=== PATIENT | female | born 1935 | race Caucasian/White ===

== ENCOUNTER 2016-08-02 11:35 | Emergency (ER) | payer OTHER ==
[2016-08-02 11:41] VITALS: TEMP 98.1; O2SAT 96
--- NOTE | 2016-08-02 12:02 | EDPHY ---
H & P Time Seen by Provider: 08/02/16 11:43 HPI/ROS: CHIEF COMPLAINT: Right leg pain and swelling HISTORY OF PRESENT ILLNESS: The patient is a 80 year old female presenting with right leg pain and swelling for the past 4 days. She tried soaking her calf in witch kristine and found no relief. Pain has increased since onset. She denies chest pain or shortness of breath. REVIEW OF SYSTEMS: Aside from elements discussed in the HPI, a comprehensive 10-point review of systems was reviewed and is negative. Past Medical/Surgical History: Kidney stones, Mitral valve repair, Anxiety, Benign breast biopsies, Asthma. Social History: Lives at home independently. Smoking Status: Never smoked Physical Exam: General Appearance: Alert, no distress Eyes: Pupils equal and round ENT, Mouth: Mucous membranes moist Neck: Normal inspection Respiratory: Lungs are clear to auscultation Cardiovascular: Regular rate and rhythm Neurological: A&O, nonfocal, normal gait Skin: Warm and dry, no rash Extremities: Right lateral aspect of lower leg has a firm cord like swelling approximately 10cm in length, with tenderness and erythema, no calf swelling or tenderness. Psychiatric: Mood and affect normal Constitutional: Initial Vital Signs Temperature (C) 36.7 C 08/02/16 11:36 Heart Rate 98 08/02/16 11:36 Respiratory Rate 16 08/02/16 11:36 Blood Pressure 123/67 H 08/02/16 11:36 O2 Sat (%) 96 08/02/16 11:36 O2 Delivery Mode Room Air Allergies/Adverse Reactions: amoxicillin trihydrate [From Augmentin] Allergy (Verified 02/09/15 12:49) Vomiting atenolol Allergy (Verified 02/09/15 12:49) Other-Enter Comments potassium clavulanate [From Augmentin] Allergy (Verified 02/09/15 12:49) Vomiting Home Medications: Medication Instructions Recorded LORazepam [Ativan (*)] 0.5 mg PO DAILY PRN 07/16/14 Mirvaso 02/26/16 Tarceva 02/26/16 Medical Decision Making - Diagnostics Imaging: Study: Ultrasound of the right lower extremity was obtained. Results: Superficial thrombophlebitis. Images were interpreted by the radiologist, Dr. Leavitt. ED Course/Re-evaluation: Patient has a superficial thrombophlebitis in varicose vein on left calf. Sent to ED to r/o DVT. Plan for US to rule out DVT. Ultrasound results d/w pt, instructions given. Departure - Departure Disposition: Home, Routine, Self-Care Clinical Impression: Superficial thrombophlebitis Qualifiers: Superficial thrombophlebitis-Involved body area: lower extremity Laterality: right Qualifier Code: (I80.01) Phlebitis and thrombophlebitis of superficial vessels of right lower extremity Condition: Good Instructions: Superficial Thrombophlebitis (ED) Additional Instructions: Followup with your primary care physician as needed. Return to the Emergency Department with increased pain, swelling, chest pain, or shortness of breath. Referrals: Katelynn Whitaker MD [Primary Care Provider] - As per Instructions Report Scribed for: Betsy Diego Report Scribed by: Cheli Ayers Date of Report: 08/02/16 Time of Report: 12:01 Physician Review and Approval Statement: 08/02/16 12:01 Portions of this note were transcribed by a medical office coordinator. I personally performed the history, physical exam, and medical decision-making; and confirmed the accuracy of the information in the transcribed note.
[2016-08-02 12:57] VITALS: BP 148/96; PULSE 73; RESP 18
--- NOTE | 2016-08-02 12:58 | US ---
Right Lower Extremity Deep Venous Duplex Ultrasound August 02, 2016 Indication: Calf tenderness and pain . Technique: The right lower extremity deep venous system and veins of the proximal calf were interroga sonu with grayscale, color, and spectral Doppler imaging. Findings: The common femoral, femoral, popliteal, greater saphenous and posterior tibial and peroneal veins of the calf normally compress on grayscale imaging. The deep venous system has normal variabil ity and flow. A thrombosed varicose vein in the lateral proximal calf corresponds to the area of concern. The super ficial thrombophlebitis extends within 5 cm of the drainage into the popliteal vein. The clot does no t extend into the deep venous system. Impression: 1. Acute thrombophlebitis involving a varicose vein in the lateral calf. 2. No deep venous thrombosis. Comment: The results were discussed with Dr. Betsy Diego at 12:50 p.m. today.
== END 2016-08-02 13:14 | disposition home or self-care (01) ==
DX: I80.01 Phlebitis and thrombophlebitis of superficial vessels of right lower extremity (principal); J45.909 Unspecified asthma, uncomplicated

== ENCOUNTER → 2016-08-05 | Outpatient (CLI) | payer OTHER ==
[~2016-08-05] MED LIST: GADOBUTROL 10 ML VIAL IVP ONE
--- NOTE | 2016-08-05 16:13 | MR ---
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 Comparison: MRI brain of April 2016. Technique: T1-weighted images were acquired axially and sagittally from the foramen magnum to the ve rtex. Axial fast inversion-recovery, fast T2-weighted, and diffusion-weighted axial images were obta ined without contrast. Postcontrast axial, coronal, and sagittal T1-weighted images with the uneventf ul intravenous administration of 7.5 mL Gadavist contrast. Findings: In the right thalamus, there is an 8 x 7 mm enhancing lesion, which is minimally increased in size since the previous study, previously measuring 6 x 6 mm. In the right parieto-occipital conv exity, there is a 14 x 6 mm enhancing lesion, which previously measured 13 x 6 mm, similar in size. T he surrounding edema in the right thalamus and right parieto-occipital convexity has slightly increas ed since the previous study, possibly secondary to radiation therapy. Also in the left frontal convex ity, there is an extraaxial dural based 16 x 6 mm enhancing lesion with associated enhancement of the adjacent bone similar to the previous study, which may represent metastasis, or meningioma. No new intra-axial enhancing lesions. Two foci of hemosiderin in the subarachnoid space left parietal conve xity appears similar, possibly representing granulomata without enhancement. The ventricles, cisterns, and sulci are widened consistent with atrophy. No hydrocephalus, midline s hift, herniation, or epidural/subdural hematomas. Diffusion-weighted images demonstrate no acute in farct. Cerebellar tonsils are in normal position. Pituitary gland is normal in size. Normal signal fl ow-void in the superior sagittal sinus, basilar artery, and bilateral internal carotid arteries indic ating patency. A few nonspecific bilateral white matter hyperintense T2/FLAIR signal abnormalities wi thout mass effect or enhancement. Paranasal sinuses and mastoid air cells are clear. Impression: 1. Right thalamic, and right parieto-occipital enhancing metastasis persists with slight increase in surrounding edema of the right thalamic and parietal occipital lobe lesions, with minimal if any gu ge in size as described above. 2. No new enhancing metastasis. 3. 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 4. No acute hemorrhage, definite acute infarct, hydrocephalus or mass effect.
== END ==
LOC: FIMAGING 09:50
PROVIDERS: ATTEND Internal Medicine Hematology & Oncology
DX: C79.31 Secondary malignant neoplasm of brain (principal); C34.12 Malignant neoplasm of upper lobe, left bronchus or lung; C77.1 Secondary and unspecified malignant neoplasm of intrathoracic lymph nodes; C78.1 Secondary malignant neoplasm of mediastinum; C79.51 Secondary malignant neoplasm of bone; Z92.3 Personal history of irradiation
CPT/HCPCS: 70553; A9585

== ENCOUNTER 2016-11-25 10:28 | Inpatient (IN) | payer OTHER ==
[2016-11-25] MEDS ORDERED: NS 1,000 ML IV ONE (11:00)
[2016-11-25] MEDS ORDERED: PANTOPRAZOLE SODIUM 40 MG in NS 100 ML IV ONE (11:01)
--- NOTE | 2016-11-25 11:05 | EDPHY ---
H & P Time Seen by Provider: 11/25/16 10:40 HPI/ROS: CHIEF COMPLAINT: Rectal bleeding HISTORY OF PRESENT ILLNESS: Patient takes Nay-[place] but no other nonsteroidals or aspirin. She was in [place] for a story telling convention and had rectal bleeding red and maroon stool at 3:00 a.m. on Thursday morning. She went to emergency department in [place] and was told she may need a colonoscopy and was discharged. She drove back here and today had black stools which were tarry. Not associated with abdominal pain or syncope. She does have generalized weakness. No vomiting or coffee-ground emesis. REVIEW OF SYSTEMS: Eye: no change in vision ENT: no sore throat Cardiac: no chest pain or syncope Pulmonary: no cough or SOB Abdomen: HPI Musculoskeletal: no back pain Skin: no rash Neuro: no headache Constitutional: no fever : no urinary symptoms A comprehensive 10 point review of systems is otherwise negative aside from elements mentioned in the history of present illness. PAST MEDICAL HISTORY: Includes stage IV lung cancer on Tarceva, mitral valve repair 2005, kidney stones anxiety and hypertension. Social history: Was with her at a story telling conference in [place] when this happened General Appearance: Alert and conversant, cooperative. Eyes: No scleral icterus. ENT, Mouth: Normal mucous membranes. Respiratory: Normal respiratory effort, breath sounds equal, lungs are clear to auscultation. Cardiovascular: Regular rate and rhythm. Gastrointestinal: Abdomen is soft and non tender. Rectal exam shows black tarry stool. Neurological: Alert and oriented x3. Normally conversant. Face symmetric, normal movement and sensation in all extremities. Skin: Warm and dry, no rashes. Musculoskeletal: No peripheral edema and no joint swelling. Psychiatric: Not agitated. Emergency Department course/MDM: Clinically likely to be acute upper GI bleed. Plan for Protonix 40 IV, IV fluids, type and screen, fecal occult blood, admission for endoscopy. 1120: Hemoccult-positive, hematocrit 35. Admission to hospitalist with [facility] GI consult. [place] 1119am for Ko. Smoking Status: Never smoked Constitutional: Initial Vital Signs Temperature (C) 36.6 C 11/25/16 10:33 Heart Rate 89 11/25/16 10:33 Respiratory Rate 20 11/25/16 10:33 Blood Pressure 153/97 H 11/25/16 10:33 O2 Sat (%) 95 11/25/16 10:33 O2 Delivery Mode Room Air Allergies/Adverse Reactions: amoxicillin trihydrate [From Augmentin] Allergy (Verified 11/25/16 10:30) Vomiting atenolol Allergy (Verified 11/25/16 10:30) Other-Enter Comments potassium clavulanate [From Augmentin] Allergy (Verified 11/25/16 10:30) Vomiting Home Medications: Medication Instructions Recorded LORazepam [Ativan (*)] 0.5 mg PO DAILY PRN 07/16/14 Tarceva 02/26/16 Medical Decision Making Differential Diagnosis: Differential considered including but not limited to upper GI bleed, lower GI bleed, colitis, hemorrhoids. Consult/Admit Bed Type: [facility], [facility] - Data Points Laboratory Results: Laboratory Results 11/25/16 11:02 11/25/16 11:02 11/25/16 11/25/16 11/25/16 11:02 11:02 11:02 WBC RBC Hgb Hct MCV MCH MCHC RDW Plt Count MPV Neut % (Auto) Lymph % (Auto) Aiken % (Auto) Eos % (Auto) Baso % (Auto) Nucleat RBC Rel Count Absolute Neuts (auto) Absolute Lymphs (auto) Absolute Monos (auto) Absolute Eos (auto) Absolute Basos (auto) Absolute Nucleated RBC Immature Gran % Immature Gran # PT Pending INR Pending APTT Pending Sodium 142 mEq/L mEq/L (134-144) Potassium 4.2 mEq/L mEq/L (3.5-5.2) Chloride 109 mEq/L mEq/L (97-110) Carbon Dioxide 24 mEq/l mEq/l (22-31) Anion Gap 9 mEq/L mEq/L (8-16) BUN 26 mg/dL H mg/dL (7-23) Creatinine 0.8 mg/dL mg/dL (0.6-1.0) Estimated GFR > 60 Glucose 94 mg/dL mg/dL (70-100) Calcium 9.1 mg/dL mg/dL (8.5-10.4) Patient ABO/Rh Pending Antibody Screen Pending 11/25/16 11:02 WBC 7.76 10^3/uL 10^3/uL (3.80-9.50) RBC 3.93 10^6/uL L 10^6/uL (4.18-5.33) Hgb 11.7 g/dL L g/dL (12.6-16.3) Hct 35.8 % L % (38.0-47.0) MCV 91.1 fL fL (81.5-99.8) MCH 29.8 pg pg (27.9-34.1) MCHC 32.7 g/dL g/dL (32.4-36.7) RDW 15.2 % % (11.5-15.2) Plt Count 232 10^3/uL 10^3/uL (150-400) MPV 9.9 fL fL (8.7-11.7) Neut % (Auto) 67.2 % % (39.3-74.2) Lymph % (Auto) 21.9 % % (15.0-45.0) Aiken % (Auto) 9.1 % % (4.5-13.0) Eos % (Auto) 0.9 % % (0.6-7.6) Baso % (Auto) 0.5 % % (0.3-1.7) Nucleat RBC Rel Count 0.0 % % (0.0-0.2) Absolute Neuts (auto) 5.21 10^3/uL 10^3/uL (1.70-6.50) Absolute Lymphs (auto) 1.70 10^3/uL 10^3/uL (1.00-3.00) Absolute Monos (auto) 0.71 10^3/uL 10^3/uL (0.30-0.80) Absolute Eos (auto) 0.07 10^3/uL 10^3/uL (0.03-0.40) Absolute Basos (auto) 0.04 10^3/uL 10^3/uL (0.02-0.10) Absolute Nucleated RBC 0.00 10^3/uL 10^3/uL (0-0.01) Immature Gran % 0.4 % % (0.0-1.1) Immature Gran # 0.03 10^3/uL 10^3/uL (0.00-0.10) PT INR APTT Sodium Potassium Chloride Carbon Dioxide Anion Gap BUN Creatinine Estimated GFR Glucose Calcium Patient ABO/Rh Antibody Screen Departure - Departure Disposition: [facility] Clinical Impression: Upper gastrointestinal bleed Condition: Fair
[2016-11-25] MEDS ORDERED: NS 100 ML BAG IV ONE (11:06)
[2016-11-25] MEDS ORDERED: PANTOPRAZOLE SODIUM 40 MG VIAL ONE (11:06)
[2016-11-25 11:14] LABS: % IMMATURE GRANULYOCYTES 0.4 % (0.0-1.1); ABSOLUTE IMMATURE GRANULOCYTES 0.03 10^3/uL (0.00-0.10); ADD DIFF? NO; ADD MORPH? NO; ADD SCAN? NO; ATYPICAL LYMPHOCYTE FLAG 10 (0-99); FRAGMENT RBC FLAG 0 (0-99); HEMATOCRIT 35.8 % (38.0-47.0); HEMOGLOBIN 11.7 g/dL (12.6-16.3); LEFT SHIFT FLG 0 (0-99); LIPEMIA HEMOLYSIS FLAG 80 (0-99); MEAN CELL HEMOGLOBIN 29.8 pg (27.9-34.1); MEAN CELL HEMOGLOBIN CONCENTR. 32.7 g/dL (32.4-36.7); MEAN CELL VOLUME 91.1 fL (81.5-99.8); MEAN PLATELET VOLUME 9.9 fL (8.7-11.7); PLATELET CLUMPS FLAG 0 (0-99); PLATELET COUNT 232 10^3/uL (150-400); RED BLOOD CELL COUNT 3.93 10^6/uL (4.18-5.33); RED CELL DISTRIBUTION WIDTH 15.2 % (11.5-15.2)
[2016-11-25 11:21] LABS: INR 1.04 (0.83-1.16); PROTIME(PATIENT) 13.5 SEC (12.0-15.0)
[2016-11-25 11:22] LABS: APTT 29.8 SEC (23.0-38.0)
[2016-11-25 11:25] LABS: ANION GAP 9 mEq/L (8-16); CALCIUM 9.1 mg/dL (8.5-10.4); CARBON DIOXIDE 24 mEq/l (22-31); CHLORIDE 109 mEq/L (97-110); CREATININE 0.8 mg/dL (0.6-1.0); GLOMERULAR FILTRATION RATE > 60; GLUCOSE 94 mg/dL (70-100); POTASSIUM 4.2 mEq/L (3.5-5.2); SODIUM 142 mEq/L (134-144)
[2016-11-25] MEDS ORDERED: ONDANSETRON 4 MG/2 ML VIAL IVP PRN (13:19)
[2016-11-25] MEDS ORDERED: oxyCODONE IR 5 MG TAB PO PRN (13:19)
[2016-11-25] MEDS ORDERED: ACETAMINOPHEN 325 MG TAB PO PRN (13:19)
[2016-11-25] MEDS ORDERED: ONDANSETRON DISINTEGRATING 4 MG TAB PO PRN (13:19)
[2016-11-25] MEDS ORDERED: NS 1,000 ML IV SCH (13:30)
[2016-11-25 14:20] LABS: HEMATOCRIT 32.8 % (38.0-47.0)
--- NOTE | 2016-11-25 14:30 | GHP ---
[f rep st] HISTORY AND PHYSICAL DATE OF ADMISSION: 11/25/2016 CHIEF COMPLAINT: Bright red blood per rectum. HISTORY OF PRESENT ILLNESS: 81-year-old female with stage IV lung cancer on [facility] presents with b leeding per rectum. She was in [place] a few days ago. She had 2 episodes of hematochezia with no f ormed stools, went to the emergency room there, was evaluated, noted to have stable vitals and, I pr esume, normal labs, discharged home with recommendations to follow up very soon with PCP. She then drove back to [place]. She saw her PCP yesterday afternoon. He wanted her to get a colonoscopy; ho wever, the earliest that she could get this done was February 24. Followup labs this morning were draw n, after those, PCP, Dr. Whitaker, recommended emergency room evaluation. In the emergency room, she had an episode of what sounds like melena. She has had some fatigue; however, no chest pain, short ness of breath, or abdominal pain associated with this. She does not take NSAIDs. She occasionally takes Nay-[place]. She takes no aspirin or other blood thinners. She has had a colonoscopy about 7 or 8 years ago which she reports was normal. She believes she has had a distant upper endoscopy. PAST MEDICAL/SURGICAL HISTORY: 1. Stage IV lung cancer followed by Dr. Kidd on [facility]. 2. Mitral valve repair in 2005. 3. History of kidney stones. 4. History of anxiety. MEDICATIONS: Please see medication reconciliation. ALLERGIES: Amoxicillin, atenolol, and potassium. FAMILY HISTORY: No lung cancer. SOCIAL HISTORY: She has never smoked. She is accompanied by her . She was recently at a [employer] in [place]. REVIEW OF SYSTEMS: 10-point review of systems is conducted and is negative except per HPI. PHYSICAL EXAMINATION: VITAL SIGNS: Blood pressure 142/74, heart rate 78, respiration rate 16, satt ing 98% on room air, temperature is 36.5. GENERAL: The patient is a very pleasant female who appea rs comfortable, mildly pale, otherwise, in no acute distress. HEENT: Normocephalic, atraumatic. C ARDIOVASCULAR: Regular rate and rhythm. No rubs or gallops. There is a 2/6 systolic murmur. PULM ONARY: Lungs clear to auscultation bilaterally. She has no respiratory distress. ABDOMEN: Soft, nontender, nondistended. SKIN: No rash. : No Parker. NEUROLOGIC: Alert and oriented x3. She is moving all extremities. PSYCHIATRIC: Normal mood and affect. LABS: Hemoglobin is 11.7. INR of 1.0. Basic metabolic panel is normal. Fecal occult blood is pos itive. DATA: 1. I discussed this with Dr. Bonilla. 2. I reviewed her chart. IMPRESSION AND PLAN: An 81-year-old female with a gastrointestinal bleed. 1. Gastrointestinal bleed: Unclear if upper or lower. She is hemodynamically stable. Hemoglobin is slightly lower than her baseline at 11, whereas her baseline is about 14. No coagulopathy or oth er anticoagulants. She will get an upper endoscopy this afternoon. If this is negative, will proce ed with a lower endoscopy. She is currently on b.i.d. IV Protonix. 2. Acute blood loss anemia: Due to the above. Will trend her H and H and transfuse if she goes be low 7. 3. Anxiety: Will continue her Ativan as needed. 4. Stage IV lung cancer: Will hold her Tarceva today, as it causes her some gastrointestinal upset . Will need to restart this soon. She is followed by Dr. Kidd. 5. Code status: She would like to be full code for now; however, she and her will discuss this further. 6. Venous thromboembolism risk: She is moderate risk, though pharmacologic is contraindicated. I will give her SCDs. /[id number]/MODL
[2016-11-25] MEDS ORDERED: PROPOFOL 200 MG/20 ML VIAL ONE (14:47)
--- NOTE | 2016-11-25 15:07 | POSTOPPROG ---
Post Op Note Date of Operation: 11/25/16 Surgeon: Jeff Bonilla Security Nurse: None Anesthesiologist: Dr. Mcmanus Anesthesia: Other (Specify) (IV General) Pre-op Diagnosis: Melena, post- hemorrhagic anemia. Post-op Diagnosis: 1. Same. 2. Mild antral gastriis(bx'ed for H. pylori). Indication: Melena and post-hemorrhagic anemia. Procedure: EGD with bx. Findings: Mild antral gastritis(not source of bleeding). Antral bx of H. pylori. Inf/Abcess present in the surg proc area at time of surgery?: No EBL: Minimal Total fluids administered: None. Complications: None. Specimen(s): Antral bx.
[2016-11-25] MEDS ORDERED: LORazepam 0.5 MG TAB PO PRN (15:32)
[2016-11-25] MEDS: GOLYTELY 4000 ML BTL PO ONE ×4 (15:45→18:27)
--- NOTE | 2016-11-25 16:25 | GPN ---
[f rep st] PROCEDURE NOTE DATE OF PROCEDURE: 11/25/2016 PROCEDURE PERFORMED: Esophagogastroduodenoscopy with biopsy. PREOPERATIVE DIAGNOSIS: Melena, post hemorrhagic anemia. POSTOPERATIVE DIAGNOSES: 1. Melena, post hemorrhagic anemia. 2. Mild antral gastritis (not consistent with the etiology of bleed); antral biopsy obtained to rul e out Helicobacter pylori. CLINICAL HISTORY/INDICATION: The patient is an 81-year-old female with stage IV lung cancer who was admitted to the hospital with a 2-day history of intermittent painless melena and mild post hemorrh agic anemia. She is set up for EGD to rule out occult peptic ulcer disease. PERMIT: The patient was informed of indication for procedure. The risks and benefits were outlined by me, informed consent was obtained. PREOPERATIVE MEDICATIONS: IV general per Dr. Schultz. FINDINGS: GIF-H180 video endoscope was inserted into the oropharynx passed to the proximal esophagu s under direct visualization. Esophageal mucosa appeared normal. Gastroesophageal junction was loc ated at 40 cm from the incisors. The scope was entered in the stomach. There was a small sliding t ype hiatal hernia pouch. The cardia, fundus, and body of the stomach appeared normal, both on front view and retroflexed position of the instrument. The antrum showed patchy erythema and granularity . Antral and fundic biopsies were obtained and placed in formalin to rule out H pylori gastritis. The pyloric channel, duodenal bulb, sweep were normal to the second portion of the duodenum. The sc ope was slowly withdrawn and removed. The patient tolerated the procedure well, and was sent to the recovery room in satisfactory condition. IMPRESSION: 1. Melena of unclear etiology; likely lower gastrointestinal source. 2. Mild antral gastritis, biopsied to rule out Helicobacter pylori gastritis. RECOMMENDATIONS: 1. Clear liquid diet. 2. Colytely prep tonight. 3. Total colonoscopy tomorrow with IV general anesthesia. /[id number]/MODL
[2016-11-25 17:02] LABS: HEMATOCRIT 32.3 % (38.0-47.0); HEMOGLOBIN 10.6 g/dL (12.6-16.3)
[2016-11-25] MEDS ORDERED: GOLYTELY 4000 ML BTL PO ONE (18:00)
[2016-11-25] MEDS: PANTOPRAZOLE SODIUM 40 MG in NS 100 ML IV SCH (21:02)
[2016-11-25 21:54] LABS: HEMATOCRIT 33.9 % (38.0-47.0); HEMOGLOBIN 11.4 g/dL (12.6-16.3)
[2016-11-25] MEDS ORDERED: LORazepam 1 MG TAB PO PRN ×2 (23:11)
--- NOTE | 2016-11-26 00:32 | GCON ---
[f rep st] 11/25/16 GI CONSULTATION REASON FOR CONSULTATION: Melena history. HISTORY OF PRESENT ILLNESS: I was asked to see this patient today by Dr. Connell for evaluation of new onset of bloody diarrhea two days ago. She states this occurred without any preceding nausea, vomiting, heartburn or indigestion, or change in her bowel habits. She had 2 episodes of hematemesis 2 days ago while in [place]. She was seen in the emergency room there, had a normal hematocrit, and was instructed to return to [place] and be evaluated once she returned home. She does have a prior history of colonoscopy performed by Dr. Lockwood in our office 6 years ago, which she states was normal. She is followed by Dr. Aidan Kidd for stage IV lung cancer. She has denied any use of NSAIDs, aspirin or blood thinners. MEDICATIONS: Oxycodone 5-10 mg p.o. q.3 hours p.r.n. musculoskeletal pain. ALLERGIES: Amoxicillin, atenolol, and potassium clavulanate. PAST MEDICAL HISTORY: Significant for stage IV lung cancer, followed by Dr. Aidan Kidd, and recently on Tarceva, mitral valve repair in 2005, a history of kidney stones, history of anxiety, and a prior history of colonoscopy 6 years ago. FAMILY HISTORY: Negative for GI malignancies, peptic ulcer or lung disease. SOCIAL HISTORY: She is a nonsmoker. Does not consume significant quantities of alcohol. Lives with her . She is retired. REVIEW OF SYSTEMS: Were negative for a comprehensive review of systems, other than melena, as noted above. PHYSICAL EXAMINATION: VITAL SIGNS: Temperature is 36.5, pulse is 78, regular, blood pressure 142/74, respiratory rate was 16, O2 saturation 96% on room air. GENERAL: This is a well-developed, well-nourished female in no apparent distress. INTEGUMENT: Clear. HEENT: Head atraumatic, normocephalic. Pupils equal, round, reactive to light. EOMs intact. Nares patent. Sclerae are nonicteric. Mucous membranes moist. Dentition fair. NECK: Supple. Trachea midline. LYMPHATICS: No cervical or axillary adenopathy. PULMONARY: Clear to percussion and auscultation. CARDIOVASCULAR: Regular rhythm and rate. Normal S1, S2, without murmur. Peripheral pulses strong bilaterally. There is trace pedal edema. GASTROINTESTINAL: Supple. Positive bowel sounds. Nontender. No liver edge or spleen tip palpable. No masses are noted. No fluid wave noted. EXTREMITIES: Without deformities. NEUROLOGIC: Patient was alert, oriented x3. There are no focal neurologic deficits. LABORATORY DATA: White count 7.76, hemoglobin 11.0, hematocrit 32.8, platelets 232,000. Pro time 13.5, INR 1.04, PTT 29.8. Electrolytes normal. BUN 26, creatinine 0.8, calcium 9.1. Stool was Hemoccult positive. IMPRESSION: 1. Gastrointestinal bleed, likely upper gastrointestinal source, though cannot exclude lower source at this time. 2. Stage IV lung cancer under therapy by Dr. Kidd. 3. History of mitral valve repair. 4. History of nephrolithiasis. RECOMMENDATIONS: 1. Esophagogastroduodenoscopy with propofol per anesthesiologist, as patient is at high risk due to her advanced lung cancer. 2. If EGD is unrevealing, we will then give the patient a Colyte prep and do a colonoscopy tomorrow. /[id number]/MODL MTDD
[2016-11-26] MEDS ORDERED: traZODone 50 MG TAB PO PRN (02:06)
[2016-11-26 03:06] LABS: HEMATOCRIT 30.5 % (38.0-47.0); HEMOGLOBIN 10.3 g/dL (12.6-16.3)
[2016-11-26 06:14] LABS: ADD DIFF? NO; ADD MORPH? NO; ADD SCAN? NO; ATYPICAL LYMPHOCYTE FLAG 0 (0-99); FRAGMENT RBC FLAG 0 (0-99); LEFT SHIFT FLG 0 (0-99); LIPEMIA HEMOLYSIS FLAG 90 (0-99); MEAN CELL HEMOGLOBIN 30.2 pg (27.9-34.1); PLATELET CLUMPS FLAG 0 (0-99)
[2016-11-26 06:48] LABS: % IMMATURE GRANULYOCYTES 0.4 % (0.0-1.1); ABSOLUTE IMMATURE GRANULOCYTES 0.02 10^3/uL (0.00-0.10); HEMATOCRIT 29.7 % (38.0-47.0); HEMOGLOBIN 10.1 g/dL (12.6-16.3); MEAN CELL VOLUME 88.9 fL (81.5-99.8); MEAN PLATELET VOLUME 10.2 fL (8.7-11.7); PLATELET COUNT 188 10^3/uL (150-400); RED BLOOD CELL COUNT 3.34 10^6/uL (4.18-5.33); RED CELL DISTRIBUTION WIDTH 14.7 % (11.5-15.2)
[2016-11-26 07:21] LABS: ALANINE AMINOTRANSFERASE 27 IU/L (9-52); ALBUMIN 3.1 g/dL (3.5-5.0); ALKALINE PHOSPHATASE 78 IU/L (38-126); ANION GAP 7 mEq/L (8-16); ASPARTATE AMINOTRANSFERASE 20 IU/L (14-46); BILIRUBIN,TOTAL 1.6 mg/dL (0.1-1.4); CALCIUM 8.4 mg/dL (8.5-10.4); CARBON DIOXIDE 25 mEq/l (22-31); CHLORIDE 109 mEq/L (97-110); CREATININE 0.7 mg/dL (0.6-1.0); GLOMERULAR FILTRATION RATE > 60; GLUCOSE 79 mg/dL (70-100); POTASSIUM 3.9 mEq/L (3.5-5.2); SODIUM 141 mEq/L (134-144); TOTAL PROTEIN 5.3 g/dL (6.3-8.2)
[2016-11-26] MEDS ORDERED: PROPOFOL/EMULSION 500 MG/50 ML BOTTLE IV ONE (08:13)
--- NOTE | 2016-11-26 08:49 | POSTOPPROG ---
Post Op Note Date of Operation: 11/26/16 Surgeon: Jeff Bonilla Board Writer: None. Anesthesiologist: Dr Rivas Anesthesia: Other (Specify) (IV General.) Pre-op Diagnosis: Melena Post-op Diagnosis: 1. Same. 2. Marked diverticulosis(likely self-limited diverticular bleed). Indication: Melena. Normal EGD. Procedure: Colonoscopy Findings: Marked diverticulosis throughout the colon without active bleeding. Inf/Abcess present in the surg proc area at time of surgery?: No EBL: Minimal Total fluids administered: None. Complications: None.
--- NOTE | 2016-11-26 09:32 | GPN ---
[f rep st] PROCEDURE NOTE DATE OF PROCEDURE: 11/26/2016 PROCEDURE: Total colonoscopy. PREOPERATIVE DIAGNOSIS: Melena with normal EGD yesterday, rule out lower gastrointestinal source of bleeding. POSTOPERATIVE DIAGNOSES: 1. Melena with normal EGD yesterday, rule out lower gastrointestinal source of bleeding. 2. Marked diverticulosis of the entire colon without active bleeding site identified; likely transi ent diverticular bleed which has since resolved. CLINICAL HISTORY/INDICATION: The patient is an 81-year-old female who was admitted to the hospital yesterday with a several-day history of melena and post hemorrhagic anemia. EGD was normal yesterda y. She is set up for colonoscopy today to rule out lower GI source of bleed. PERMIT: Patient was informed of indication for procedure. Risks and benefits of procedure were out lined by me. Informed consent was obtained. PREOPERATIVE MEDICATIONS: IV general anesthesia per Dr. Rivas. FINDINGS: CF-180AL video colonoscope was inserted in the rectum and advanced to the cecum with mode rate difficulty due to tortuosity of colon and marked diverticulosis throughout the entire colon. T he scope was advanced to the cecum, passed across the ileocecal valve into the terminal ileum, and t he distal 5 cm of the terminal ileum was inspected and appeared normal. There was no blood staining in the ileum or the colonic lumen. Scope was slowly withdrawn. The appendiceal orifice, ileocecal valve, and proximal ascending colon appeared normal. The remainder of the ascending colon as well as the transverse colon, descending colon, and sigmoid colon showed multiple medium to large size di verticula without blood staining or retained clots. There is no evidence of active bleeding or ulce ration of diverticula. No AVMs were identified. Scope was retroflexed in the rectum. There were n o distal rectal abnormalities identified. Scope was removed. Digital exam confirmed normal anal ca nal. Patient tolerated procedure well and was sent to recovery room in satisfactory condition. IMPRESSION: 1. Marked diverticulosis throughout the entire colon. 2. Likely transient diverticular bleed as etiology for the patient's history of melena and her post hemorrhagic anemia. RECOMMENDATIONS: 1. Diet as tolerated. 2. Discharge patient home later today. /[id number]/MODL
[2016-11-26 10:10] VITALS: O2SAT 97
[2016-11-26 11:03] VITALS: BP 137/88; PULSE 78; RESP 14; TEMP 97.7
[2016-11-26] MEDS: PANTOPRAZOLE SODIUM 40 MG in NS 100 ML IV SCH (11:21)
[2016-11-26 11:46] LABS: HEMATOCRIT 31.5 % (38.0-47.0); HEMOGLOBIN 10.7 g/dL (12.6-16.3)
--- NOTE | 2016-11-26 12:53 | HOSPPROG ---
Hospitalist Progress Note Assessment/Plan: Patient is an 81 y/o woman who presented to the ER with bleeding per rectum. She has a hx of Stage IV lung cancer/on Tarceva. Today is my first encounter with the patient/chart reviewed. *GI bleed EGD yesterday showed no etiology Colonoscopy -bleed is likely a diverticular bleed that is transient H/h stable appreciate Dr Bonilla *ABLA labs stable *anxiety ativan *Stage IV lung ca f/u with Dr Kidd *Plan: dc home Subjective: Gabbie is feeling well today/ no complaints. Objective: Vital Signs Temp Pulse Resp BP Pulse Ox 36.5 C 78 14 137/88 H 97 11/26/16 11:01 11/26/16 11:01 11/26/16 11:01 11/26/16 11:01 11/26/16 11:01 Laboratory Results 11/26/16 11:30 11/26/16 05:46 11/25/16 11/26/16 11/27/16 05:59 05:59 05:59 Intake Total 2499 600 Output Total 0 250 Balance 2499 350 PT 13.5 SEC (12.0-15.0) 11/25/16 11:02 INR 1.04 (0.83-1.16) 11/25/16 11:02 - Physical Exam Constitutional: no apparent distress, appears nourished, not in pain Eyes: PERRL Ears, Nose, Mouth, Throat: hearing normal Cardiovascular: regular rate and rhythym, no murmur, rub, or gallop Respiratory: no respiratory distress Gastrointestinal: normoactive bowel sounds Skin: warm Musculoskeletal: full muscle strength Neurologic: AAOx3 Psychiatric: interacting appropriately, not anxious ICD10 Worksheet Patient Problems: Problems Problem Status Onset Upper gastrointestinal bleed Acute Lung mass Acute Nasopharyngeal mass Acute
--- NOTE | 2016-11-26 15:54 | GDS ---
[f rep st] DISCHARGE SUMMARY DISCHARGE DIAGNOSES: 1. Gastrointestinal bleed. 2. Acute blood loss anemia. 3. Anxiety. 4. Stage IV lung cancer, followed by Dr. Kidd. CONSULTATIONS: Dr. Jeff Bonilla. HISTORY OF PRESENT ILLNESS/HOSPITAL COURSE: Briefly, the patient is an 81-year- old female with stage IV cancer, on Tarceva. She presented with bleeding per rectum. She was in [place] a few days ago and had 2 episodes of hematochezia, with no formed stools. She went to the ER and was noted to be stable. She then drove back to [place] and saw her primary care provider. He wanted her to get a colonoscopy, but she could not get in until February 24. She had some fatigue, no chest pain. She was seen and evaluated by Dr. Bonilla, and on the afternoon of November 25, she had an EGD with biopsy which showed mild antral gastritis. She was biopsied to rule out H pylori gastritis. Subsequently, they thought her bleed was a lower GI bleed. She had a colonoscopy performed this morning that showed marked diverticulosis throughout the entire colon. It is noted that she likely has transient diverticular bleed as the etiology for her history of melena and her post hemorrhagic anemia. She is doing well today. Her labs are stable. She will be discharged and further follow up with her primary care provider. HOSPITAL COURSE BY PROBLEM: 1. GI bleed: She will follow up with Dr. Bonilla in regard to her pending studies. 2. Acute blood loss anemia: Hemoglobin and hematocrit are stable since admission. 3. Anxiety: Ativan resumed. 4. Stage IV lung cancer: Further follow up with Dr. Kidd. PENDING LABORATORY: Multiple biopsies are pending. CONDITION AT DISCHARGE: Stable. Blood pressure is 137/88. Respiratory rate is 14. Pulse is 78. Temperature is 36.5 Celsius. O2 sats on room air 96%. MEDICATIONS AT DISCHARGE: Please see the EMR. DISCHARGE INSTRUCTIONS: 1. To monitor her stools for any further melena. 2. To follow up with Dr. Bonilla in regard to her pending studies. 3. Check a repeat H and H next week. >35 minutes discharging and coordinating care. Copy requested to: Dr. Bonilla /[id number]/MODL MTDD
== END 2016-11-26 15:36 | disposition home or self-care (01) | DRG 378 ==
LOC: F3E 13:19
PROVIDERS: ADMIT Student in an Organized Health Care Education/Training Program; ATTEND Internal Medicine
PROC: 0DB68ZX Excision of Stomach, Via Natural or Artificial Opening Endoscopic, Diagnostic (ICD-10-PCS; principal; 2016-11-25 14:45)
PROC: 0DJD8ZZ Inspection of Lower Intestinal Tract, Via Natural or Artificial Opening Endoscopic (ICD-10-PCS; 2016-11-26)
DX: K62.5 Hemorrhage of anus and rectum (principal); K29.70 Gastritis, unspecified, without bleeding; D62 Acute posthemorrhagic anemia; K57.90 Diverticulosis of intestine, part unspecified, without perforation or abscess without bleeding; F41.9 Anxiety disorder, unspecified; C34.90 Malignant neoplasm of unspecified part of unspecified bronchus or lung; I10 Essential (primary) hypertension; Z87.442 Personal history of urinary calculi
CPT/HCPCS: 86870-90; 86905-90; 96365; 97165-GO; 99001-90; G8987-GO-CI; G8988-GO-CI; G8989-GO-CI; J2704

== ENCOUNTER → 2017-01-07 | Outpatient (CLI) | payer OTHER | LOC: FIMAGING 09:42 | PROVIDERS: ATTEND Internal Medicine Hematology & Oncology | DX: C79.31 Secondary malignant neoplasm of brain (principal); C79.51 Secondary malignant neoplasm of bone; C77.1 Secondary and unspecified malignant neoplasm of intrathoracic lymph nodes; C78.1 Secondary malignant neoplasm of mediastinum; C34.12 Malignant neoplasm of upper lobe, left bronchus or lung | CPT/HCPCS: 70553; A9585 ==

== ENCOUNTER → 2017-03-27 | Outpatient (CLI) | payer OTHER | LOC: FIMAGING 13:02 | PROVIDERS: ATTEND Internal Medicine Hematology & Oncology | DX: C79.31 Secondary malignant neoplasm of brain (principal) | CPT/HCPCS: 70553; A9585 ==

== ENCOUNTER → 2017-06-15 | Outpatient (CLI) | payer OTHER | LOC: FIMAGING 12:12 | DX: C79.31 Secondary malignant neoplasm of brain (principal); C34.12 Malignant neoplasm of upper lobe, left bronchus or lung | CPT/HCPCS: 70553; A9585 ==

== ENCOUNTER → 2017-08-06 | Outpatient (CLI) | payer OTHER | LOC: BMCIMAGING 10:44 | PROVIDERS: ATTEND Internal Medicine | DX: R50.9 Fever, unspecified (principal); R05 Cough; C34.90 Malignant neoplasm of unspecified part of unspecified bronchus or lung ==

== ENCOUNTER 2017-09-19 12:04 | Emergency (ER) | payer OTHER ==
[2017-09-19 12:12] VITALS: RESP 18; TEMP 97.9
--- NOTE | 2017-09-19 14:04 | EDPHY ---
H & P Stated Complaint: Sent here for enemas;+passing gas;small stools x 2 wks Time Seen by Provider: 09/19/17 12:58 HPI/ROS: CHIEF COMPLAINT: Constipation HISTORY OF PRESENT ILLNESS: The patient presents to the ED with reported constipation for the past several weeks. She has been dealing with this under the care of multiple providers. She has taken a number of [id number] laxatives with varying results. The patient was referred to the emergency department for consideration of enema. She denies any abdominal pain, nausea or vomiting. REVIEW OF SYSTEMS: A comprehensive 10 point review of systems is otherwise negative aside from elements mentioned in the history of present illness. Source: Patient Exam Limitations: No limitations - Personal History Current Tetanus Diphtheria and Acellular Pertussis (TDAP): Yes - Medical/Surgical History Hx Asthma: Yes Hx Chronic Respiratory Disease: No Hx Diabetes: No Hx Cardiac Disease: Yes Hx Renal Disease: No Hx Cirrhosis: No Hx Alcoholism: No Hx HIV/AIDS: No Hx Splenectomy or Spleen Trauma: No Other PMH: kidney stone. Mitral valve repair 2005. anxiety. HTN. benign breast biopsies. asthma as child. lung cancer stage 4 - Social History Smoking Status: Never smoked - Physical Exam Exam: General Appearance: Alert, no distress Eyes: Pupils equal and round no pallor or injection ENT, Mouth: Mucous membranes moist Respiratory: There are no retractions, lungs are clear to auscultation Cardiovascular: Regular rate and rhythm Gastrointestinal: Abdomen is soft and nontender, no masses, bowel sounds normal Neurological: A&O, normal motor function, normal sensory exam, normal cranial nerves Skin: Warm and dry, no rashes Musculoskeletal: Neck is supple nontender Extremities: symmetrical, full range of motion Constitutional: Initial Vital Signs Temperature (C) 36.6 C 09/19/17 12:08 Heart Rate 88 09/19/17 12:08 Respiratory Rate 18 09/19/17 12:08 Blood Pressure 178/104 H 09/19/17 12:08 O2 Sat (%) 96 09/19/17 12:08 O2 Delivery Mode Room Air Allergies/Adverse Reactions: benzonatate Allergy (Mild, Verified 09/19/17 12:14) Rash amoxicillin trihydrate [From Augmentin] Allergy (Verified 09/19/17 12:14) Vomiting atenolol Allergy (Verified 09/19/17 12:14) Other-Enter Comments barium sulfate Allergy (Verified 09/19/17 12:14) potassium clavulanate [From Augmentin] Allergy (Verified 09/19/17 12:14) Vomiting barium Allergy (Uncoded 09/19/17 12:14) IV contrast Allergy (Uncoded 09/19/17 12:14) Home Medications: Medication Instructions Recorded LORazepam [Ativan (*)] 0.5 mg PO DAILY PRN 07/16/14 Erlotinib HCl [Tarceva] 25 mg PO MWF 11/25/16 Erlotinib HCl [Tarceva] 50 mg PO SUTUTHSA 11/25/16 Acetaminophen [Tylenol 325mg (*)] 650 mg PO Q4HRS PRN #0 tab 11/26/16 Medical Decision Making - Diagnostics Imaging Results: Imaging Impressions Abdomen X-Ray 09/19/17 13:04 Impression: No acute findings. ED Course/Re-evaluation: The patient's abdominal x-ray demonstrates only mild stool. There is no perforation or obstruction. The patient has been on a number of laxatives including both stimulant as osmotic agents. She was referred here by her asbestos hazard abatement worker for a possible sub suds enema. The patient's rectal examination demonstrates no evidence of an obvious internal or external hemorrhoid. There is no evidence of prolapse. The rectal vault is empty. The patient's x-ray demonstrates no significant constipation or presence of stool. I see no indication for enema at this point time. I have advised that the patient discontinue stimulant laxatives at this point time is this certainly could be causing some of her discomfort. She can continue asthmatic agents such as MiraLax, milk of magnesia and magnesium citrate. The patient did undergo a colonoscopy in October of this year which demonstrated only a small diverticular bleed. The patient will be discharged home with instructions to resume a regular diet, avoid stimulant laxatives and follow up with her regular kitchen aide for any ongoing symptoms. Departure - Departure Disposition: Home, Routine, Self-Care Clinical Impression: Constipation Condition: Good Instructions: Constipation (DC) Additional Instructions: 1. Our x-ray demonstrates no evidence of significant constipation. 2. I do recommend continuing medications as prescribed by our primary care provider. 3. I recommend the use of osmotic laxative such as MiraLax, milk of magnesia and magnesium citrate. Please avoid using Dulcolax and stimulant laxatives as these may be contributing to your abdominal pain. 4. Resume a regular diet. Please return to the ED for severe abdominal pain, bloating or vomiting. 5. Please follow up with your primary care provider as needed. Please follow up with your kitchen aide Dr. Garcia for any ongoing intestinal issues. Referrals: Katelynn Whitaker MD [Primary Care Provider] - As per Instructions Eduin Garcia MD [[facility] [place]] - As per Instructions
[2017-09-19 14:50] VITALS: BP 147/82; PULSE 82; O2SAT 94
== END 2017-09-19 14:51 | disposition home or self-care (01) ==
DX: K59.00 Constipation, unspecified (principal); I10 Essential (primary) hypertension; J45.909 Unspecified asthma, uncomplicated; Z85.118 Personal history of other malignant neoplasm of bronchus and lung

== ENCOUNTER 2017-10-26 05:39 | Observation (INO) | payer OTHER ==
[2017-10-26] MEDS ORDERED: LIDOCAINE 1% 2 ML INJ ID PRN (05:54)
[2017-10-26] MEDS ORDERED: LR 1,000 ML IV ONE (05:54)
[2017-10-26] MEDS ORDERED: BUPIVACAINE 0.5% 30 ML SDV ONE (06:20)
[2017-10-26] MEDS ORDERED: LIDOCAINE 1% 300 MG/30 ML SDV ONE (06:20)
[2017-10-26] MEDS ORDERED: BUPIVACAINE/EPI 0.5% 30 ML SDV ONE (06:20)
[2017-10-26] MEDS ORDERED: ceFAZolin 2 GM/SWFI 2 GM/20 ML SYR IVP ONE (06:31)
[2017-10-26] MEDS ORDERED: LR 1,000 ML IV SCH (07:00)
[2017-10-26] MEDS ORDERED: MIDAZOLAM 2 MG/2 ML VIAL IVP ONE (07:16)
--- NOTE | 2017-10-26 07:16 | PDHPUP ---
History & Physical Update H&P update statement: This history and physical update is based on an assessment of the patient which was completed after admission or registration (within 24 hours), but prior to the surgery/procedure. H&P update: H&P reviewed & patient examined, no change in patient's condition since H&P completed
[2017-10-26] MEDS ORDERED: PROPOFOL/EMULSION 500 MG/50 ML BOTTLE IV ONE (07:34)
[2017-10-26] MEDS ORDERED: fentaNYL 250 MCG/5 ML INJ ONE (07:34)
[2017-10-26] MEDS ORDERED: DEXAMETHASONE 4 MG/ML VIAL ONE (07:34)
[2017-10-26] MEDS ORDERED: PHENYLEPHRINE HCL 100 MCG/ML SYR ONE (07:34)
[2017-10-26] MEDS ORDERED: ROCURONIUM 100 MG/10 ML VIAL ONE (07:34)
[2017-10-26] MEDS ORDERED: PROPOFOL 200 MG/20 ML VIAL ONE (07:34)
[2017-10-26] MEDS ORDERED: ONDANSETRON 4 MG/2 ML VIAL ONE (07:34)
[2017-10-26] MEDS ORDERED: ERLOTINIB HCL PO SCH (08:00)
--- NOTE | 2017-10-26 08:21 | PDANEPAE ---
ANE History of Present Illness Laparoscopic rectopexy ANE Past Medical History - Cardiovascular History Hx Hypertension: Yes Hx Arrhythmias: No Hx Chest Pain: No Hx Coronary Artery / Peripheral Vascular Disease: No Hx CHF / Valvular Disease: Yes Hx Palpitations: No Cardiovascular History Comment: hx of MVR 2005. 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 lung ca currently - Neurologic History Hx Cerebrovascular Accident: No Hx Seizures: No Hx Dementia: No - Endocrine History Hx Diabetes: No Hypothyroid: No Hyperthyroid: No Obesity: mild - Renal History Hx Renal Disorders: Yes Renal History Comment: frequency with increase of fluids recently. hx of kidney stone - Liver History Hx Hepatic Disorders: No - Neurological & Psychiatric Hx Hx Neurological and Psychiatric Disorders: Yes Neurological / Psychiatric History Comment: anxiety - Cancer History Hx Cancer: Yes Cancer History Comment: lung cancer diagnosed 02/02/2015. mets to bone, brain and lymph nodes - Congenital Disorder History Hx Congenital Disorders: No - GI History GERD: mild Hx Gastrointestinal Disorders: Yes Gastrointestinal History Comment: rectal prolapse. hx of GIB and rectal bleeding 11/2016. chronic constipation. bloating and gas - Other Health History Other Health History: wears glasses - Chronic Pain History Chronic Pain: No - Surgical History Prior Surgeries: egd with anesthesia and [place] 11/25/16. 12/04/14 endoscopic sinus surgery with paddock. 2005 Left mitral valve repair. breast biopsies x2 bronchoscopy ANE Review of Systems Review of Systems: - Exercise capacity METS (RN): 4 METS - Systems Constitutional: Reports: weakness EENMT: Reports: other (Dry mouth and eyes) Cardiac: Reports: no symptoms Respiratory: Reports: no symptoms Gastrointestinal: Reports: other (Prolapse) Genitourinary: Reports: incontinence Muscolosketal: Reports: joint pain Skin: Reports: dryness (Easy bruising) Neurological: Reports: anxiety ANE Patient History - Allergies Allergies/Adverse Reactions: acetaminophen Allergy (Verified 10/15/17 14:25) Upset Stomach amoxicillin trihydrate [From Augmentin] Allergy (Verified 10/15/17 13:57) Vomiting- goes back 20 plus years atenolol Allergy (Verified 10/15/17 13:57) rage/ agitation barium sulfate Allergy (Verified 10/15/17 13:57) next day after contrast she is "crazy" benzonatate Allergy (Verified 10/15/17 13:57) Rash potassium clavulanate [From Augmentin] Allergy (Verified 10/15/17 13:57) Vomiting- goes back 20 plus years - Home Medications Home medications: home medication list seen and reviewed Home Medications: Erlotinib HCl [Tarceva] 25 mg PO MWF 11/25/16 [Last Taken 10/23/17] Erlotinib HCl [Tarceva] 50 mg PO SUTUTHSA 11/25/16 [Last Taken 10/25/17] LORazepam [Ativan (*)] 1 mg PO BID PRN 10/15/17 [Last Taken 10/26/17 02:00] traMADol [Ultram 50 mg (*)] 50 mg PO DAILY PRN 10/15/17 [Last Taken 09/30/17] - NPO status NPO Status: no food or drink >8 hours NPO Since - Liquids (Date): 10/25/17 NPO Since - Liquids (Time): 20:30 NPO Since - Solids (Date): 10/25/17 NPO Since - Solids (Time): 17:00 - Anes Hx Anes Hx: no prior problems - Smoking Hx Smoking Status: Never smoked Marijuana use: No - Alcohol Use Alcohol Use: None - Family Anes Hx Family Anes Hx: none Family Hx Anesthesia Complications: none ANE Labs/Vital Signs - Vital Signs Blood Pressure: 166/96 Heart Rate: 75 Respiratory Rate: 16 O2 Sat (%): 94 Height: 162.56 cm Weight: 68.039 kg ANE Physical Exam - Airway Neck exam: decreased ROM Mallampati Score: Class 2 Mouth exam: normal dental/mouth exam - Pulmonary Pulmonary: no respiratory distress, no rales or rhonchi - Cardiovascular Cardiovascular: regular rate and rhythym, no murmur, rub, or gallop - ASA Status ASA Status: III (Lung CA ) ANE Anesthesia Plan Anesthesia Plan: general endotracheal anesthesia
[2017-10-26] MEDS ORDERED: SUGAMMADEX SODIUM 200 MG/2 ML VIAL IVP ONE (09:36)
[2017-10-26] MEDS ORDERED: HYDROmorphONE/DILAUDID 2 MG/ML INJ ONE ×2 (09:40→10:16)
[2017-10-26] MEDS ORDERED: fentaNYL 100 MCG/2 ML INJ ONE (09:53)
[2017-10-26] MEDS: fentaNYL 100 MCG/2 ML INJ IVP PRN ×3 (09:54→10:13)
[2017-10-26] MEDS ORDERED: MEPERIDINE 25 MG/ML SYR IVP PRN (09:56)
[2017-10-26] MEDS ORDERED: ONDANSETRON 4 MG/2 ML VIAL IVP PRN ×2 (09:56→10:29)
[2017-10-26] MEDS ORDERED: NALOXONE HCL 0.4 MG/ML INJ IVP PRN (09:56)
[2017-10-26] MEDS: HYDROmorphONE/DILAUDID 1 MG/ML INJ IVP PRN ×3 (10:18→10:38)
--- NOTE | 2017-10-26 10:29 | POSTOPPROG ---
Post Op Note Date of Operation: 10/26/17 Surgeon: José Miguel De Leon Software Test Analyst: [email or web address] Anesthesiologist: Shamar Anesthesia: GET(General Endotracheal) Pre-op Diagnosis: rectal prolapse Post-op Diagnosis: same Procedure: Lap rectopexy Inf/Abcess present in the surg proc area at time of surgery?: No EBL: Minimal
[2017-10-26] MEDS ORDERED: IBUPROFEN 600 MG TAB PO PRN (10:33)
[2017-10-26] MEDS ORDERED: oxyCODONE IR 5 MG TAB PO PRN (10:33)
[2017-10-26] MEDS ORDERED: LORazepam 1 MG TAB PO PRN ×2 (10:45→15:12)
[2017-10-26] MEDS ORDERED: traMADol 50 MG TAB PO PRN (10:45)
--- NOTE | 2017-10-26 14:13 | GOP ---
[f rep st] OPERATIVE REPORT DATE OF OPERATION: 10/26/2017 SURGEON: José Miguel De Leon MD ANESTHESIA: General endotracheal anesthesia was used. ANESTHESIOLOGIST: Dr. Nany Ibanez. PREOPERATIVE DIAGNOSIS: Rectal prolapse. POSTOPERATIVE DIAGNOSIS: Rectal prolapse. PROCEDURE PERFORMED: Symptomatic prolapse was treated with rectopexy. FINDINGS: SPECIMENS: None. ESTIMATED BLOOD LOSS: Less than 50 mL. INDICATIONS: This is an 82-year-old woman with a known history of lung cancer, left upper bronchus, who has recently had mitral valve replacement a year ago for congestive heart failure; presents with rectal prolapse. DESCRIPTION OF PROCEDURE: The patient was brought into the operating room. After induction of endot toym anesthesia in supine position, her abdomen was prepped and draped sterilely. Time-out proced ure was performed according to the institutional standards. The abdomen was approached through an op en 5 mm trocar placement supraumbilically. The abdomen was insufflated to 15 TOR with carbon dioxide . Working trocars were placed in the right lower quadrant under direct visualization. The patient w as placed in steep Trendelenburg and left tilt to facilitate dissection. She has redundancy of her c olon. There is obvious diverticular disease. The colon is mobilized on the left and right side of t he rectal mesocolon, and the space between the posterior vaginal wall and the rectum is opened, and t he space of Retzius to the pouch of Jonathan are then open. A rectopexy is then performed by placing sutures, 2 on the medial side and 1 on the lateral side and 1 anteriorly to close that space, using 0 Ethibond suture. The redundancy of the colon was also brought up slightly and tacked to the left pe lvic sidewall using 0 Vicryl. After insuring hemostasis and no longer redundancy within the pelvis w ith the rectum stretched and appropriately affixed with suture, the abdomen was exited by deflating t he abdomen. The incisions were closed using 4-0 Monocryl at the level of the skin. The patient was awakened, extubated, taken to recovery room in stable condition. No immediate complications. COMPLICATIONS: None. INDICATIONS FOR THE PROCEDURE: This is an 82-year-old woman who has symptomatic rectal prolapse. Sh e has been unable to deal with conservative treatment. She is continent of stool; and after resectio n, rectopexy and rectopexy options were given. Rectopexy was chosen as a lesser evil. The patient s till is on Tarceva. Her blood counts are normal. She is otherwise in her baseline state of health. /[id number]/MODL
[2017-10-26] MEDS ORDERED: LORazepam 0.5 MG TAB PO PRN ×2 (14:26→14:30)
[2017-10-27] MEDS ORDERED: ENOXAPARIN 40 MG/0.4 ML SYR SC SCH (09:00)
[2017-10-27] MEDS ORDERED: ERLOTINIB HCL PO SCH ×3 (10:00→10:59)
[2017-10-27 11:57] VITALS: BP 129/77
[2017-10-28] MEDS ORDERED: ERLOTINIB HCL PO SCH ×2 (08:00)
--- NOTE | 2017-11-10 00:19 | GDS ---
[f rep st] DISCHARGE SUMMARY This is an 82-year-old woman who presents to the hospital for urgent repair of rectal prolapse. The patient has had multiple episodes of prolapse and is having prolapse on a daily basis with bowel move ment. She has a past medical history which is significant for lung cancer, for which she is on Tarce va. She had been apprised of the risks and benefits of surgery and presented for urgent repair. PRINCIPAL DIAGNOSIS: Rectal prolapse. OTHER DIAGNOSIS: Include lung cancer. MEDICATIONS: Tarceva, which is a chemotherapeutic agent. Anusol, acetaminophen, lorazepam, tramadol , vitamin B12, vitamin D3. ALLERGIES: She has allergies to acetaminophen, amoxicillin, atenolol, barium. HOSPITAL COURSE: The patient presented in her baseline state of health with problems with rectal pro lapse. She underwent initial evaluation and management conservatively, and is here for urgent proced ure. The patient underwent laparoscopic rectopexy. She has tolerated a diet. She was passing flatu s, but had not had a bowel movement prior to discharge. She had no blood per rectum. She was back t o her baseline cardiopulmonary status. She was prescribed all her home medications and was discharge d to home, tolerated diet without concerns. She will follow up in the office in approximately 2 week s. The patient's was present for her discharge and management. No complications of this hos pitalization. We will continue to watch her conservatively for primary rectal prolapse, rectopexy [place] rgery for any recurrence. The patient was happy with her hospitalization. Will follow up josee Peters #: [id number]/MODL
--- NOTE | 2017-11-25 10:50 | GPROG ---
Date of surgery 10/26/17 [f rep st] PROGRESS NOTE POST ANESTHETIC NOTE Ms Mckeon had a general anesthetic on 09/25/2017 for laparoscopic rectopexy. Patient tolerated anesthetic well. Was awakened and taken to Recovery in good condition. She was admitted to the [facility] from where she was discharged home the next day. She was able to have a conversation with surgeon. Her pain was controlled. Her nausea was controlled, and she was discharged in good condition. No apparent anesthetic complications were noted. /[id number]/MODL MTDD
== END 2017-10-27 13:19 | disposition home or self-care (01) ==
LOC: F3N 05:39 → INTOOBSV 05:39 → F3E 10:58
PROVIDERS: ADMIT Surgery; ATTEND Surgery
PROC: 0DSP4ZZ Reposition Rectum, Percutaneous Endoscopic Approach (ICD-10-PCS; principal; 2017-10-26 07:15)
DX: K62.3 Rectal prolapse (principal)
CPT/HCPCS: 45400; G0378; J0690; J1100; J1170; J2250; J2370; J2405; J2704; J3010

== ENCOUNTER 2018-01-10 12:36 | Emergency (ER) | payer OTHER ==
[2018-01-10] MEDS ORDERED: NS 1,000 ML IV ONE (13:31)
--- NOTE | 2018-01-10 13:32 | EDPHY ---
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 She is currently taking oral Tarceva for her lung cancer, which is supposed to be excreted through the bowels each day. Since the prolapsed rectum repair in October, she has had chronic constipation. She hasn't had a bowel movement in 3 days. She has associated gas and abdominal pain and cramping. She has tried Dulcolax, Miralax, high fiber diet, high fiber drinks, and other remedies. She reports that she is eating enough that she should be producing stool. She denies any vomiting, fever, or any other associated symptoms. She denies history of low potassium or any other condition that could cause chronic constipation. No fever, chills, chest pain, shortness of breath, palpitations, vomiting, diarrhea, urinary complaints, headache, lightheadedness. REVIEW OF SYSTEMS: Aside from elements discussed in the HPI, a comprehensive 10-point review of systems was reviewed and is negative. PAST MEDICAL HISTORY: Stage IV lung cancer with brain metastases treated with Tarceva, prolapsed rectum repaired in October, heart valve repair in 2005, hypertension, anxiety SOCIAL HISTORY: at bedside, lives in [place], retired VITAL SIGNS: Reviewed by me GENERAL: Well-developed, well-nourished, resting comfortably in no respiratory distress. HEENT: Atraumatic. Eyes: No icterus, no injection. Mouth: moist mucous membranes. No erythema or lesions. Neck: supple with no adenopathy. LUNGS: Clear to auscultation bilaterally, no wheezes, rhonchi or rales. CARDIAC: Slightly irregular rate and rhythm, no rubs, murmurs or gallops. ABDOMEN: Tenderness in the right lower quadrant, left lower quadrant, suprapubic region, and epigastric region. Soft, no guarding, no rebound nondistended, bowel sounds normal. BACK: No CVA tenderness. EXTREMITIES: No trauma. No edema. Range of motion is normal throughout. NEURO: Alert and oriented, grossly nonfocal. SKIN: Warm and dry, no rash. PSYCHIATRIC: Normal mentation, no agitation. RECTAL: No hemorrhoids, rectal column normal to inspection, no visual evidence of blood or other abnormalities. ED Course: 12-LEAD EKG: Please see the full report in [facility]. My interpretation: Sinus rhythm X-ray: Abdominal x-ray was obtained. I viewed the images myself on the PACS system. My interpretation of the images is: moderate constipation. The radiologist interpretation is moderate constipation. I discussed the x-ray findings with the patient. The patient presents with chronic constipation following a prolapsed rectum repair in October. She has tried Dulcolax, Miralax, high fiber diet, and high fiber drinks. She has associated abdominal pain and cramping but denies vomiting. She has not had a bowel movement in 3 days. On exam, her heart is slightly irregular and her abdomen is tender but soft with no rebound or guarding. Her rectal exam is normal without sign of hemorrhoid or other abnormality. Plan for EKG, abdominal x-ray, CBC, basic metabolic panel, urinalysis and 1L NS fluids. 2:30 PM - Labs, urinalysis, and EKG are largely unremarkable. No sign of occult blood. Her x-ray shows moderate constipation. I feel that she can be released with instructions to use Miralax and Gatorade to treat her constipation at home and follow up with her PCP for continued care. I informed the patient of the results of her workup. She agrees to this course of action. Return precautions and discharge instructions given. MDM: Diff dx considered included constipation, obstipation, fecal impaction, hypokalemia, dehydration, bowel obstruction. - Data Points Imaging Results: Impression: Moderate constipation. Dictated By: Jose Carlos Vyas MD Imaging: I viewed and interpreted images myself Laboratory Results: Laboratory Results 01/10/18 13:35 01/10/18 13:35 Medications Given: Discontinued Medications Sodium Chloride (Ns) 1,000 mls @ 0 mls/hr IV EDNOW ONE; Wide Open PRN Reason: Protocol Stop: 01/10/18 13:32 Last Admin: 01/10/18 14:01 Dose: 1,000 mls General Time Seen by Provider: 01/10/18 12:56 Initial Vital Signs: Initial Vital Signs Temperature (C) 36.8 C 01/10/18 12:38 Heart Rate 84 01/10/18 12:38 Respiratory Rate 16 01/10/18 12:38 Blood Pressure 188/104 H 01/10/18 12:38 O2 Sat (%) 96 01/10/18 12:38 O2 Delivery Mode Room Air Allergies/Adverse Reactions: acetaminophen Allergy (Verified 10/15/17 14:25) Upset Stomach amoxicillin trihydrate [From Augmentin] Allergy (Verified 10/15/17 13:57) Vomiting- goes back 20 plus years atenolol Allergy (Verified 10/15/17 13:57) rage/ agitation barium sulfate Allergy (Verified 10/15/17 13:57) next day after contrast she is "crazy" benzonatate Allergy (Verified 10/15/17 13:57) Rash potassium clavulanate [From Augmentin] Allergy (Verified 10/15/17 13:57) Vomiting- goes back 20 plus years amoxicillin trihydrate Allergy (Unknown, Uncoded 01/07/18 14:14) Vomiting- goes back 20 plus years potassium clavulanate Allergy (Unknown, Uncoded 01/07/18 14:14) Vomiting- goes back 20 plus years Home Medications: Medication Instructions Recorded Erlotinib HCl [Tarceva] 25 mg PO MWF 11/25/16 Erlotinib HCl [Tarceva] 50 mg PO SUTUTHSA 11/25/16 LORazepam [Ativan (*)] 0.25 mg PO BID PRN 10/15/17 traMADol [Ultram 50 mg (*)] 50 mg PO DAILY PRN 10/15/17 Departure - Departure Disposition: Home, Routine, Self-Care Clinical Impression: Constipation Qualifiers: Constipation type: other constipation type Qualified Code(s): K59.09 - Other constipation Condition: Good Instructions: Constipation (ED) Additional Instructions: 1. Please purchase a 1 L bottle of liquid Miralax and a large (2L) bottle of your preferred sports or electrolyte beverage. Mix half of the Miralax liquid with half of the beverage and drink within half an hour. Mix the other halves together and drink over the course of 4 hours. 2. Follow up with your primary care provider regarding your visit. 3. Return to the ED for blood in your stool, vomiting, or any other worsening of condition. 4. I also recommend beginning some type of daily bowel program. A dose of Colace each day and a dose of Metamucil would be a good start. Referrals: Katelynn Whitaker MD [Primary Care Provider] - As per Instructions Report Scribed for: Shantal Peters Report Scribed by: Melody Freeman Date of Report: 01/10/18 Time of Report: 13:35 Physician Review and Approval Statement: Portions of this note were transcribed by a medical legal investigator. I personally performed a history, physical exam, medical decision making, and confirmed accuracy of information the transcribed note.
--- NOTE | 2018-01-10 13:44 | CPEKG ---
Heart Rate: 74 RR Interval: 811 P-R Interval: 156 QRSD Interval: 76 QT Interval: 412 QTC Interval: 457 P [place]: 31 QRS [place]: -29 T Wave [place]: 11 EKG Severity - BORDERLINE ECG - EKG Impression: SINUS RHYTHM EKG Impression: LVH BY VOLTAGE Electronically Signed By: Shantal Peters 10-Jan-2018 22:12:07
[2018-01-10 13:52] LABS: PLATELET COUNT 258 10^3/uL (150-400)
[2018-01-10 15:40] VITALS: BP 155/99
== END 2018-01-10 15:42 | disposition home or self-care (01) ==
DX: K59.09 Other constipation (principal); I10 Essential (primary) hypertension; Z85.118 Personal history of other malignant neoplasm of bronchus and lung; Z85.841 Personal history of malignant neoplasm of brain

== ENCOUNTER 2018-03-28 15:33 | Emergency (ER) | payer OTHER ==
--- NOTE | 2018-03-28 16:11 | EDPHY ---
HPI/HX/ROS/PE/MDM Narrative: CHIEF COMPLAINT: Pain from shingles HISTORY OF PRESENT ILLNESS: The patient is an 82 y/o female with a history of stage IV lung cancer complaining of pain from shingles. Last week, she was diagnosed with shingles with a t4 distribution on the right side. She began taking an antiviral and 500mg of Tylenol each night. Her pain was manageable until last night when she had difficulty sleeping due to pain. She tried taking tramadol in the past and did not experience any improvement. She did not try it for this particular pain, although she does have tramadol available to her at home. She was able to sleep by wrapping a scarf over the area. The region of pain extends beyond her scabbed shingles region into the right side of her chest. She also noticed an itchy area on her left foot. She denies fever, vomiting, or any other associated symptoms. No fever, chills, shortness of breath, palpitations, vomiting, diarrhea, urinary complaints, headache, lightheadedness. REVIEW OF SYSTEMS: A comprehensive 10 system review of systems is otherwise negative aside from elements mentioned in the history of present illness and medical decision making. PAST MEDICAL HISTORY: Stage IV lung cancer, shingles diagnosed 1 week ago SOCIAL HISTORY: at bedside, retired, lives in [place] VITAL SIGNS: Reviewed by me GENERAL: Well-developed, well-nourished, resting comfortably in no respiratory distress. HEENT: Atraumatic. Eyes: No icterus, no injection. Mouth: moist mucous membranes. No erythema or lesions. Neck: supple with no adenopathy. LUNGS: Clear to auscultation bilaterally, no wheezes, rhonchi or rales. CARDIAC: Regular rate and rhythm, no rubs, murmurs or gallops. EXTREMITIES: No trauma. No edema. Range of motion is normal throughout. NEURO: Alert and oriented, grossly nonfocal. SKIN: Vesicular rash following the right T-4 distribution, with scabbed over vesicles extending from beside the spine into the armpit. Patient has faint erythema and nonspecific dermatitis along the lateral aspect of her left foot. At this point I do not see any vesicular lesions and the rash does not appear to be zoster in nature. PSYCHIATRIC: Normal mentation, no agitation. ED Course: Study: X-ray of the chest Indication: Pain Results: X-ray of the chest was obtained. The results of the study are: Stable, no acute changes The study was read by the radiologist, Dr. Graham. I viewed the images myself on the PACS system. The patient presents with pain from shingles. She was diagnosed with shingles a week ago and has been taking antiviral medication and Tylenol at night. Her rash follows the right t4 distribution and has mostly scabbed over. Her pain last night interfered with her ability to sleep. The painful region extends beyond her rash and into her chest. Further she has a small area of redness on her left foot to watch. At this time there is not vesicular rash on the foot. Plan for chest x-ray, 300 mg gabapentin, and 50 mg Tramadol. 5:00 PM - Her chest x-ray is normal and her condition has improved. I feel she is safe for discharge with gabapentin and tramadol to relieve pain. She agrees to this course of action. MDM: Differential diagnoses for the patient's symptom complex was considered including but not limited to herpetic neuralgia, post herpetic neuralgia, medication under treatment, anxiety. - Data Points Imaging Results: Impression: Stable negative chest. Dictated By: Yogi Graham MD Imaging: I viewed and interpreted images myself Medications Given: Discontinued Medications Gabapentin (Neurontin) 300 mg PO EDNOW ONE Stop: 03/28/18 16:31 Last Admin: 03/28/18 16:37 Dose: 300 mg Tramadol HCl (Ultram) 50 mg PO EDNOW ONE Stop: 03/28/18 16:31 Last Admin: 03/28/18 16:36 Dose: 50 mg General Time Seen by Provider: 03/28/18 16:03 Initial Vital Signs: Initial Vital Signs Temperature (C) 37 C 03/28/18 15:35 Heart Rate 102 H 03/28/18 15:35 Respiratory Rate 18 03/28/18 15:35 Blood Pressure 178/105 H 03/28/18 15:35 O2 Sat (%) 95 03/28/18 15:35 O2 Delivery Mode Room Air Allergies/Adverse Reactions: acetaminophen Allergy (Verified 03/28/18 15:35) Upset Stomach amoxicillin trihydrate [From Augmentin] Allergy (Verified 03/28/18 15:35) Vomiting- goes back 20 plus years atenolol Allergy (Verified 03/28/18 15:35) rage/ agitation barium sulfate Allergy (Verified 03/28/18 15:35) next day after contrast she is "crazy" benzonatate Allergy (Verified 03/28/18 15:35) Rash potassium clavulanate [From Augmentin] Allergy (Verified 03/28/18 15:35) Vomiting- goes back 20 plus years amoxicillin trihydrate Allergy (Unknown, Uncoded 01/07/18 14:14) Vomiting- goes back 20 plus years potassium clavulanate Allergy (Unknown, Uncoded 01/07/18 14:14) Vomiting- goes back 20 plus years Home Medications: Medication Instructions Recorded Erlotinib HCl [Tarceva] 25 mg PO MWF 11/25/16 Erlotinib HCl [Tarceva] 50 mg PO SUTUTHSA 11/25/16 LORazepam [Ativan (*)] 0.25 mg PO BID PRN 10/15/17 traMADol [Ultram 50 mg (*)] 50 mg PO DAILY PRN 10/15/17 Famciclovir [Famvir 250 MG (*)] 500 mg PO 03/28/18 Gabapentin [Neurontin 300 MG (*)] 300 mg PO TID PRN #30 cap 03/28/18 traMADol [Ultram 50 mg (*)] 50 mg PO Q4 PRN #20 tab 03/28/18 Departure - Departure Disposition: Home, Routine, Self-Care Clinical Impression: Post herpetic neuralgia Condition: Good Instructions: Shingles (ED) Additional Instructions: For your pain, we will start you on gabapentin. Schedule is below: Day 1: 300 mg Day 2: 300 mg twice daily Day 3: 300 mg 3 times daily After this, you may take gabapentin 300 mg up to 3 times a day. You may also use tramadol 1 tablet every 4-6 hours for pain. You may also try topical lidocaine as soon as all of your lesions have healed. Do not use topical lidocaine and any areas of rash which are still open and weeping. Please observe the area on your foot to be sure that this does not also start to developed blisters, rash on to your lower leg and upper leg, or other concerns which might indicate a 2nd shingles outbreak. Please follow up with primary care physician for further evaluation and treatment as needed. Referrals: NONE *PRIMARY CARE P,. [Primary Care Provider] - As per Instructions Aidan Kidd MD [Medical Doctor] - As per Instructions Prescriptions: Gabapentin [Neurontin 300 MG (*)] 300 mg PO TID PRN #30 cap PRN Reason: Pain, Breakthrough traMADol [Ultram 50 mg (*)] 50 mg PO Q4 PRN #20 tab PRN Reason: pain Report Scribed for: Shantal Peters Report Scribed by: Melody Freeman Date of Report: 03/28/18 Time of Report: 17:11 Physician Review and Approval Statement: Portions of this note were transcribed by a medical scheduler. I personally performed a history, physical exam, medical decision making, and confirmed accuracy of information the transcribed note.
[2018-03-28] MEDS ORDERED: GABAPENTIN 300 MG CAP PO ONE (16:30)
[2018-03-28] MEDS ORDERED: traMADol 50 MG TAB PO ONE (16:30)
[2018-03-28 17:34] VITALS: BP 135/102
--- NOTE | 2018-03-28 18:12 | ASMTCMCOM ---
CM Note CM Note Notes: Pt presented to the ED through triage for pain related to shingles that she was diagnosed with about 1 wk ago. Pt and her ,Aidan, requested information on homecare assistance resources; this CM spoke w/pt and Aidan and they said they hired a private home care nurse but she has been on vacation for about a month. Pt and Aidan said they met w/pt's PCP Dr Hernandez recently and requested getting HC assistance again; pt hopes to hear back by or Thu. This CM offered a [employer] w/info on non-skilled homecare highlighted but they declined, stating they already had one and that they have gone through [facility] in the past. Pt also has an appt w/Dr Kidd at [facility] this upcoming . CM available for further assistance if needed. Date Signed: 03/28/2018 06:12 PM Electronically Signed By:Deb Garcia RN
== END 2018-03-28 17:31 | disposition home or self-care (01) ==
DX: B02.29 Other postherpetic nervous system involvement (principal)

== ENCOUNTER → 2018-07-01 | Outpatient (CLI) | payer OTHER | LOC: BMCIMAGING 12:43 | PROVIDERS: ATTEND Internal Medicine Hematology & Oncology | DX: N83.291 Other ovarian cyst, right side (principal); N83.292 Other ovarian cyst, left side; Z85.118 Personal history of other malignant neoplasm of bronchus and lung ==

== ENCOUNTER 2018-07-30 15:55 | Emergency (ER) | payer OTHER ==
[2018-07-30] MEDS ORDERED: NS 1,000 ML IV ONE (16:14)
[2018-07-30] MEDS ORDERED: ONDANSETRON 4 MG/2 ML VIAL IVP ONE (16:18)
--- NOTE | 2018-07-30 16:18 | EDPHY ---
H & P Stated Complaint: n/v/d fever cancer pt Time Seen by Provider: 07/30/18 16:05 HPI/ROS: CHIEF COMPLAINT: Nausea, vomiting and diarrhea HISTORY OF PRESENT ILLNESS: Patient is an 82-year-old female with a history of stage IV lung cancer with previous brain metastasis treated with radiation currently on Tagrisso. The she is followed by Dr. Layton. She was in her normal state of health until yesterday afternoon when she developed nausea, vomiting and diarrhea. Nonbloody. No fever. She has not taken any anti nausea medications. Here triage she is tachycardic. She has a history of mitral valve repair with what sounds like transvenous procedure. She does not require anticoagulation. Also history of anxiety. No history of abdominal surgeries other than a rectal prolapse for surgery earlier this year. Tagrisso does have nausea vomiting and diarrhea listed as common complications. Severity: Moderate Modifying factors: None REVIEW OF SYSTEMS: Constitutional: denies: chills, fever, recent illness, recent injury EENTM: denies: blurred vision, double vision, nose congestion Respiratory: denies: cough, shortness of breath Cardiac: denies: chest pain, irregular heart rate, lightheadedness, palpitations Gastrointestinal/Abdominal: See HPI denies: abdominal pain, blood streaked stools Genitourinary: denies: dysuria, frequency, hematuria, pain Musculoskeletal: denies: joint pain, muscle pain Skin: denies: lesions, rash, jaundice, bruising Neurological: denies: headache, numbness, paresthesia, tingling, dizziness, weakness Hematologic/Lymphatic: denies: blood clots, easy bleeding, easy bruising Immunologic/allergic: denies: HIV/AIDS, transplant 10 systems reviewed and negative except as noted EXAM: GENERAL: Well-appearing, well-nourished and in no acute distress. HEAD: Atraumatic, normocephalic. EYES: Pupils equal round and reactive to light, extraocular movements intact, sclera anicteric, conjunctiva are normal. ENT: TMs normal, nares patent, oropharynx clear without exudates. Moist mucous membranes. NECK: Normal range of motion, supple without lymphadenopathy or JVD. LUNGS: Breath sounds clear to auscultation bilaterally and equal. No wheezes rales or rhonchi. HEART: Regular rate and rhythm without murmurs, rubs or gallops. ABDOMEN: Soft, nontender, normoactive bowel sounds. No guarding, no rebound. No masses appreciated. BACK: No CVA tenderness, no spinal tenderness, step-offs or deformities EXTREMITIES: Normal range of motion, no pitting or edema. No clubbing or cyanosis. NEUROLOGICAL: Cranial nerves II through XII grossly intact. Normal speech, normal gait. 5/5 strength, normal movement in all extremities, normal sensation , normal reflexes PSYCH: Normal mood, normal affect. SKIN: Warm, dry, normal turgor, no visible rashes or lesions. Source: Patient, Old records Exam Limitations: No limitations - Personal History Current Tetanus Diphtheria and Acellular Pertussis (TDAP): Yes - Medical/Surgical History Hx Asthma: Yes Hx Chronic Respiratory Disease: No Hx Diabetes: No Hx Cardiac Disease: Yes Hx Renal Disease: No Hx Cirrhosis: No Hx Alcoholism: No Hx HIV/AIDS: No Hx Splenectomy or Spleen Trauma: No Other PMH: stage 4 lung CA mets to brain. rectopexy 10/2017,. kidney stone. Mitral valve repair 2005 - [employer]. anxiety. HTN - Family History Significant Family History: No pertinent family hx - Social History Smoking Status: Never smoked Alcohol Use: None Drug Use: None Constitutional: Initial Vital Signs Temperature (C) 37.2 C 07/30/18 16:00 Heart Rate 144 H 07/30/18 16:00 Respiratory Rate 19 07/30/18 16:00 Blood Pressure 145/84 H 07/30/18 16:00 O2 Sat (%) 95 07/30/18 16:00 O2 Delivery Mode Room Air Allergies/Adverse Reactions: acetaminophen Allergy (Verified 07/30/18 15:58) Upset Stomach amoxicillin trihydrate [From Augmentin] Allergy (Verified 07/30/18 15:58) Vomiting- goes back 20 plus years atenolol Allergy (Verified 07/30/18 15:58) rage/ agitation barium sulfate Allergy (Verified 07/30/18 15:58) next day after contrast she is "crazy" benzonatate Allergy (Verified 07/30/18 15:58) Rash potassium clavulanate [From Augmentin] Allergy (Verified 07/30/18 15:58) Vomiting- goes back 20 plus years amoxicillin trihydrate Allergy (Unknown, Uncoded 01/07/18 14:14) Vomiting- goes back 20 plus years potassium clavulanate Allergy (Unknown, Uncoded 01/07/18 14:14) Vomiting- goes back 20 plus years Home Medications: Medication Instructions Recorded Metoclopramide [Reglan 10 mg tab 10 mg PO BID PRN #10 tab 07/30/18 (RX)] Tagrisso 07/30/18 Medical Decision Making ED Course/Re-evaluation: Patient's lab work is reassuring. She has received 1 L of fluid. Will start a 2nd. She has been up to the bathroom. She is complaining of a headache. Her nausea has improved. Will treat with Reglan and observe. 6:15 p.m. the patient is feeling better other than being cold. She denies urinary symptoms. Will send her urine for culture. will not treat at this time. Likely contamination from diarrhea. 7:00 p.m. the patient is feeling better. She is eager to go home. I offered admission for further observation and she declines. Differential Diagnosis: Partial list of the Differential diagnosis considered include but were not limited to; gastritis, food poisoning, dehydration , medication reaction and although unlikely based on the history and physical exam, I also considered urinary tract infection, sepsis, acute coronary disease. - Data Points Laboratory Results: Laboratory Results 07/30/18 16:29 07/30/18 16:29 07/30/18 07/30/18 07/30/18 17:30 16:29 16:29 WBC 7.07 10^3/uL 10^3/uL (3.80-9.50) RBC 5.11 10^6/uL 10^6/uL (4.18-5.33) Hgb 15.2 g/dL g/dL (12.6-16.3) Hct 45.4 % % (38.0-47.0) MCV 88.8 fL fL (81.5-99.8) MCH 29.7 pg pg (27.9-34.1) MCHC 33.5 g/dL g/dL (32.4-36.7) RDW 14.6 % % (11.5-15.2) Plt Count 204 10^3/uL 10^3/uL (150-400) MPV 9.9 fL fL (8.7-11.7) Neut % (Auto) 84.1 % H % (39.3-74.2) Lymph % (Auto) 11.2 % L % (15.0-45.0) Burt % (Auto) 4.0 % L % (4.5-13.0) Eos % (Auto) 0.1 % L % (0.6-7.6) Baso % (Auto) 0.3 % % (0.3-1.7) Nucleat RBC Rel Count 0.0 % % (0.0-0.2) Absolute Neuts (auto) 5.95 10^3/uL 10^3/uL (1.70-6.50) Absolute Lymphs (auto) 0.79 10^3/uL L 10^3/uL (1.00-3.00) Absolute Monos (auto) 0.28 10^3/uL L 10^3/uL (0.30-0.80) Absolute Eos (auto) 0.01 10^3/uL L 10^3/uL (0.03-0.40) Absolute Basos (auto) 0.02 10^3/uL 10^3/uL (0.02-0.10) Absolute Nucleated RBC 0.00 10^3/uL 10^3/uL (0-0.01) Immature Gran % 0.3 % % (0.0-1.1) Immature Gran # 0.02 10^3/uL 10^3/uL (0.00-0.10) Sodium 136 mEq/L mEq/L (135-145) Potassium 4.4 mEq/L mEq/L (3.5-5.2) Chloride 108 mEq/L mEq/L (97-110) Carbon Dioxide 20 mEq/l L mEq/l (22-31) Anion Gap 8 mEq/L mEq/L (6-14) BUN 23 mg/dL mg/dL (7-23) Creatinine 1.2 mg/dL H mg/dL (0.6-1.0) Estimated GFR 43 Glucose 121 mg/dL H mg/dL (70-100) Calcium 9.3 mg/dL mg/dL (8.5-10.4) Total Bilirubin 1.1 mg/dL mg/dL (0.1-1.4) Conjugated Bilirubin 0.2 mg/dL mg/dL (0.0-0.5) Unconjugated Bilirubin 0.9 mg/dL mg/dL (0.0-1.1) AST 20 IU/L IU/L (14-46) ALT 17 IU/L IU/L (9-52) Alkaline Phosphatase 101 IU/L IU/L (38-126) Total Protein 7.1 g/dL g/dL (6.3-8.2) Albumin 4.1 g/dL g/dL (3.5-5.0) Urine Color YELLOW Urine Appearance HAZY Urine pH 5.0 (5.0-7.5) Ur Specific [place] 1.025 (1.002-1.030) Urine Protein NEGATIVE (NEGATIVE) Urine Ketones 1+ H (NEGATIVE) Urine Blood 1+ H (NEGATIVE) Urine Nitrate NEGATIVE (NEGATIVE) Urine Bilirubin NEGATIVE (NEGATIVE) Urine Urobilinogen NEGATIVE EU EU (0.2-1.0) Ur Leukocyte Esterase NEGATIVE (NEGATIVE) Urine RBC 15-25 /hpf H /hpf (0-3) Urine WBC 3-5 /hpf H /hpf (0-3) Ur Epithelial Cells TRACE /lpf /lpf (NONE-1+) Urine Bacteria TRACE /hpf H /hpf (NONE SEEN) Hyaline Casts 5-15 /lpf /lpf (0-1) Urine Mucus 3+ /lpf H /lpf (NONE-1+) Urine Glucose NEGATIVE (NEGATIVE) Medications Given: Discontinued Medications Sodium Chloride (Ns) 1,000 mls @ 0 mls/hr IV EDNOW ONE; Wide Open PRN Reason: Protocol Stop: 07/30/18 16:15 Last Admin: 07/30/18 16:29 Dose: 1,000 mls Metoclopramide HCl (Reglan Injection) 10 mg IVP EDNOW ONE Stop: 07/30/18 17:40 Last Admin: 07/30/18 17:45 Dose: 10 mg Ondansetron HCl (Zofran) 4 mg IVP EDNOW ONE Stop: 07/30/18 16:19 Last Admin: 07/30/18 16:30 Dose: 4 mg Promethazine HCl (Phenergan 25 Mg Prepack #4) 1 btl TAKEHOME EDNOW ONE Stop: 07/30/18 19:19 Last Admin: 07/30/18 19:32 Dose: Not Given Departure - Departure Disposition: Home, Routine, Self-Care Clinical Impression: Nausea vomiting and diarrhea, Dehydration Condition: Fair Instructions: Promethazine (By injection), Dehydration (ED), Acute Nausea and Vomiting (ED), Acute Diarrhea (ED) Additional Instructions: We have given you Phenergan to take for recurrent nausea or headache. The prescription is for Reglan which is also for recurrent nausea or headache. Do not take together. Referrals: Any Hernandez MD [Primary Care Provider] - As per Instructions Prescriptions: Metoclopramide [Reglan 10 mg tab (RX)] 10 mg PO BID PRN #10 tab PRN Reason: Headache
[2018-07-30 16:38] LABS: PLATELET COUNT 204 10^3/uL (150-400)
[2018-07-30] MEDS ORDERED: METOCLOPRAMIDE 10 MG/2 ML VIAL IVP ONE (17:39)
[2018-07-30 19:08] VITALS: BP 174/98
[2018-07-30] MEDS ORDERED: PROMETHAZINE 25 MG PREPACK #4 BTL TAKEHOME ONE (19:18)
== END 2018-07-30 19:34 | disposition home or self-care (01) ==
DX: R11.2 Nausea with vomiting, unspecified (principal); R19.7 Diarrhea, unspecified; E86.0 Dehydration; I10 Essential (primary) hypertension; F41.9 Anxiety disorder, unspecified; Z85.118 Personal history of other malignant neoplasm of bronchus and lung; Z85.841 Personal history of malignant neoplasm of brain
CPT/HCPCS: 96361; 96374; 96375; 99284; J2405; J2765

== ENCOUNTER 2018-10-11 11:31 | Emergency (ER) | payer OTHER ==
--- NOTE | 2018-10-11 11:55 | EDPHY ---
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 rectopexy 10/2017,. kidney stone. Mitral valve repair 2005 - [employer]. anxiety. HTN - Social History Smoking Status: Never smoked Constitutional: Initial Vital Signs Temperature (C) 36.6 C 10/11/18 11:36 Heart Rate 91 10/11/18 11:36 Respiratory Rate 18 10/11/18 11:36 Blood Pressure 153/87 H 10/11/18 11:36 O2 Sat (%) 97 10/11/18 11:36 O2 Delivery Mode Room Air Allergies/Adverse Reactions: acetaminophen Allergy (Verified 10/11/18 11:36) Upset Stomach amoxicillin trihydrate [From Augmentin] Allergy (Verified 10/11/18 11:36) Vomiting- goes back 20 plus years atenolol Allergy (Verified 10/11/18 11:36) rage/ agitation barium sulfate Allergy (Verified 10/11/18 11:36) next day after contrast she is "crazy" benzonatate Allergy (Verified 10/11/18 11:36) Rash potassium clavulanate [From Augmentin] Allergy (Verified 10/11/18 11:36) Vomiting- goes back 20 plus years amoxicillin trihydrate Allergy (Unknown, Uncoded 01/07/18 14:14) Vomiting- goes back 20 plus years potassium clavulanate Allergy (Unknown, Uncoded 01/07/18 14:14) Vomiting- goes back 20 plus years Home Medications: Medication Instructions Recorded Metoclopramide [Reglan 10 mg tab 10 mg PO BID PRN #10 tab 07/30/18 (RX)] Tagrisso 07/30/18 Medical Decision Making - Diagnostics Imaging: Discussed imaging studies w/ scallop dredger Radiologist, I viewed and interpreted images myself ED Course/Re-evaluation: CHIEF COMPLAINT: Bright red rectal bleeding HISTORY OF PRESENT ILLNESS: The patient is an 83 y/o female with a history of stage 4 lung cancer with mets to her brain, mitral valve repair, and diverticulitis associated with rectal bleeding requiring a rectopexy complaining of bright red rectal bleeding this morning. The patient had a prolapsed rectum around 1 year ago which required a repair. The patient also has chronic constipation and is on Linzess. This morning when she was having a bowel movement she noticed bright red blood coming from her rectum. She denies any black tarry stool. No fever, headache, body aches, lightheadedness, chest pain, heart palpitations, shortness of breath , cough, abdominal pain, urinary complaints, numbness, paresthesias. REVIEW OF SYSTEMS: A comprehensive 10 system review of systems is otherwise negative aside from elements mentioned in the history of present illness and medical decision making. PHYSICAL EXAM: HR, BP, O2 Sat, RR. Temp noted General Appearance: Alert, well hydrated, appropriate, and non-toxic appearing. Head: Atraumatic without scalp tenderness or obvious injury Eyes: Pupils equal, round, reactive to light and accommodation, EOMI, no trauma , no injection. Ears: Clear bilaterally, no perforation, normal landmarks Nose: Atraumatic, no rhinorrhea, clear. Throat: There is no erythema or exudates, no lesions, normal tonsils, mucus membranes moist. Neck: Supple, 2+ carotid upstroke, nontender, no lymphadenopathy. Respiratory: No retractions, no distress, no wheezes, and no accessory muscle use. Lungs are clear to auscultation bilaterally. Cardiovascular: Regular rate and rhythm, no murmurs, rubs, or gallops. Bilateral carotid, radial, dorsalis pedis, and posterior tibial pulses intact. Good capillary refill all extremities. Gastrointestinal: Abdomen is soft, nontender, non-distended, no masses, no rebound, no guarding, no peritoneal signs. Musculoskeletal: Normal active ROM of all extremities, atraumatic. Neurological: Alert, appropriate, and interactive. The patient has normal DTRs and non-focal cranial nerves, motor, sensory, and cerebellar exam. Skin: No rashes, good turgor, no nodules on palpation. Past medical history: Stage 4 lung cancer with mets to brain, diverticulitis with rectal bleeding, hypertension, anxiety, kidney stone Past surgical history: Mitral valve repair (2005), rectopexy (10/2018) Family history: Social history: Lives in [place], retired DIAGNOSTICS/PROCEDURES/CRITICAL CARE TIME: Abdominopelvic CT: No acute findings. Patient has large stool burden. DIFFERENTIAL DIAGNOSIS: The differential diagnosis for the patient's rectal bleeding included but was not limited to diverticulosis, tumor, AVM, hemorrhoid, and upper GI Bleed. MEDICAL DECISION MAKING: The patient is an 83 y/o female with a history of stage 4 lung cancer with mets to her brain, mitral valve repair, and diverticulitis associated with rectal bleeding requiring a rectopexy complaining of bright red rectal bleeding this morning. The patient is chronically constipated and I suspect she is having hemorrhoidal bleeding due to the constipation. Labs ordered. We will perform imaging studies if her labs are normal. 1247: Reassessed patient and discussed normal lab findings. Abdominopelvic CT ordered. 1345: I spoke with Dr. Lloyd, radiologist, regarding patient. There are no acute findings although she does have a large stool burden. 1350: Reassessed patient and discussed imaging findings. I have advised her to follow up with a third officer regarding her hemorrhoids. Return precautions provided; patient and her are comfortable with this plan. - Data Points Laboratory Results: Laboratory Results 10/11/18 12:10 10/11/18 12:10 10/11/18 10/11/18 10/11/18 12:10 12:10 12:10 WBC 3.92 10^3/uL 10^3/uL (3.80-9.50) RBC 4.58 10^6/uL 10^6/uL (4.18-5.33) Hgb 13.2 g/dL g/dL (12.6-16.3) Hct 40.9 % % (38.0-47.0) MCV 89.3 fL fL (81.5-99.8) MCH 28.8 pg pg (27.9-34.1) MCHC 32.3 g/dL L g/dL (32.4-36.7) RDW 15.9 % H % (11.5-15.2) Plt Count 186 10^3/uL 10^3/uL (150-400) MPV 10.4 fL fL (8.7-11.7) Neut % (Auto) 58.6 % % (39.3-74.2) Lymph % (Auto) 28.6 % % (15.0-45.0) Placer % (Auto) 10.5 % % (4.5-13.0) Eos % (Auto) 1.5 % % (0.6-7.6) Baso % (Auto) 0.5 % % (0.3-1.7) Nucleat RBC Rel Count 0.0 % % (0.0-0.2) Absolute Neuts (auto) 2.30 10^3/uL 10^3/uL (1.70-6.50) Absolute Lymphs (auto) 1.12 10^3/uL 10^3/uL (1.00-3.00) Absolute Monos (auto) 0.41 10^3/uL 10^3/uL (0.30-0.80) Absolute Eos (auto) 0.06 10^3/uL 10^3/uL (0.03-0.40) Absolute Basos (auto) 0.02 10^3/uL 10^3/uL (0.02-0.10) Absolute Nucleated RBC 0.00 10^3/uL 10^3/uL (0-0.01) Immature Gran % 0.3 % % (0.0-1.1) Immature Gran # 0.01 10^3/uL 10^3/uL (0.00-0.10) PT 12.6 SEC SEC (12.0-15.0) INR 0.98 (0.83-1.16) APTT 33.9 SEC SEC (23.0-38.0) Sodium 136 mEq/L mEq/L (135-145) Potassium 4.3 mEq/L mEq/L (3.5-5.2) Chloride 105 mEq/L mEq/L (97-110) Carbon Dioxide 23 mEq/l mEq/l (22-31) Anion Gap 8 mEq/L mEq/L (6-14) BUN 18 mg/dL mg/dL (7-23) Creatinine 1.0 mg/dL mg/dL (0.6-1.0) Estimated GFR 53 Glucose 105 mg/dL H mg/dL (70-100) Calcium 9.2 mg/dL mg/dL (8.5-10.4) Departure - Departure Disposition: Home, Routine, Self-Care Clinical Impression: Hemorrhoid Qualifiers: Hemorrhoid type: other Qualified Code(s): K64.8 - Other hemorrhoids Constipation Qualifiers: Constipation type: unspecified constipation type Qualified Code(s): K59.00 - Constipation, unspecified Condition: Good Instructions: Constipation (ED), Hemorrhoids (DC) Additional Instructions: 1. Follow up with a third officer for hemorrhoids. 2. Return to the emergency apartment for fever, severe pain, inability to urinate or have a bowel movement or other concerns. Referrals: Any Hernandez MD [Primary Care Provider] - As per Instructions Amanda Florian MD [Medical Doctor] - As per Instructions Report Scribed for: Ion Dixon Report Scribed by: Yelitza Knapp Date of Report: 10/11/18 Time of Report: 11:58
[2018-10-11 12:25] LABS: PLATELET COUNT 186 10^3/uL (150-400)
[2018-10-11 12:33] LABS: INR 0.98 (0.83-1.16); PROTIME(PATIENT) 12.6 SEC (12.0-15.0)
[2018-10-11] MEDS ORDERED: IOPAMIDOL (ISOVUE-300) 100 ML BTL ONE (13:00)
[2018-10-11 13:27] VITALS: BP 168/94
--- NOTE | 2018-10-11 17:27 | ASMTCMCOM ---
CM Note CM Note Notes: Pt 's called regarding inability to schedule with Dr. Florian who was dining car conductor at the time of ED visit. Follow up call to Aidan who reported that she was able to be scheduled with Dr. Garcia. Aidan reported that it was difficult for them to travel to [place] and they were frustrated with the process. He would like assistance finding a home health nurse for a few hours a week. CM to follow. Date Signed: 10/11/2018 05:26 PM Electronically Signed By:Femi Raphael LCSW
== END 2018-10-11 14:03 | disposition home or self-care (01) ==
DX: K64.8 Other hemorrhoids (principal); K59.09 Other constipation; K57.30 Diverticulosis of large intestine without perforation or abscess without bleeding; C34.90 Malignant neoplasm of unspecified part of unspecified bronchus or lung; C79.31 Secondary malignant neoplasm of brain; N20.0 Calculus of kidney; K80.20 Calculus of gallbladder without cholecystitis without obstruction; Z95.4 Presence of other heart-valve replacement
CPT/HCPCS: 74177; 99285; Q9967

== ENCOUNTER → 2018-11-08 | Outpatient (CLI) | payer OTHER | LOC: BMCIMAGING 13:42 | PROVIDERS: ATTEND Internal Medicine Gastroenterology | DX: R19.7 Diarrhea, unspecified (principal); M41.86 Other forms of scoliosis, lumbar region; M51.36 Other intervertebral disc degeneration, lumbar region; N20.0 Calculus of kidney ==

== ENCOUNTER 2019-01-18 23:26 | Inpatient (IN) | payer OTHER | END 2019-01-20 14:47 | disposition home or self-care (01) | LOC: F2W 01-19 02:56 ==